=== PATIENT | female | born 1955 | race Caucasian/White ===

== ENCOUNTER → 2017-07-02 | Emergency (ER) | payer OTHER ==
[~2017-07-02] VITALS: Ht 152.4 cm; Wt 61.2 kg
== END | disposition home or self-care (01) ==
LOC: ER 14:00
DX: M25.551 Pain in right hip (principal)

== ENCOUNTER 2018-11-09 10:53 | Emergency (ER) | payer OTHER ==
[~2018-11-09] VITALS: Ht 160 cm; Wt 62.6 kg
== END 2018-11-09 14:17 | disposition home or self-care (01) ==
LOC: ER 10:53
DX: M54.31 Sciatica, right side (principal)

== ENCOUNTER 2021-12-31 08:07 | Outpatient (CLI) | payer OTHER | END 2021-12-31 08:09 | disposition home or self-care (01) | LOC: NUCLEAR 08:07 | PROVIDERS: ATTEND Family Medicine | DX: M81.0 Age-related osteoporosis without current pathological fracture (principal) ==

== ENCOUNTER 2021-12-31 08:39 | Outpatient (CLI) | payer OTHER | END 2021-12-31 08:43 | disposition home or self-care (01) | LOC: LAB 08:39 | PROVIDERS: ATTEND Family Medicine | DX: R42 Dizziness and giddiness (principal); E03.9 Hypothyroidism, unspecified; N39.0 Urinary tract infection, site not specified; E78.2 Mixed hyperlipidemia; E11.9 Type 2 diabetes mellitus without complications ==

== ENCOUNTER 2021-12-31 11:03 | Outpatient (CLI) | payer OTHER | END 2021-12-31 11:12 | disposition home or self-care (01) | LOC: MAMO-SONO 11:03 | PROVIDERS: ATTEND Family Medicine | DX: Z12.31 Encounter for screening mammogram for malignant neoplasm of breast (principal) ==

== ENCOUNTER 2024-09-21 08:02 | Outpatient (CLI) | payer OTHER ==
[2024-09-21 08:55] LABS: HEMATOCRIT 42.4 % (36.0-45.00); HEMOGLOBIN 14.2 g/dL (12.0-15.00); MEAN CORPUSCULAR HEMOGLOBIN 30.2 pg (27.00-32.0); MEAN CORPUSCULAR HGB CONC 33.5 g/dl (32.0-36.0); PLATELET COUNT 236 K/uL (150-450); RED BLOOD COUNT 4.71 M/uL (4.00-6.00); RED CELL DISTRIBUTION WIDTH 13.9 % (11.5-14.5)
[2024-09-21 08:57] LABS: URINE APPEARANCE Cloudy; URINE BILIRRUBIN Negative (NEGATIVE); URINE BLOOD Negative; URINE COLOR Yellow; URINE GLUCOSE Negative (NEGATIVE); URINE KETONE Negative (NEGATIVE); URINE LEUKOCYTE Small; URINE NITRATE Negative; URINE PROTEIN Negative (NEGATIVE)
[2024-09-21 09:01] LABS: URINE BACTERIA 3053.7 uL (0.0-1933); URINE EPITHELIAL CELLS 98.4 uL (0.0-38.8); URINE RBC 9.7 uL (0.0-20.8); URINE WBC 57.9 uL (0.0-23.2)
[2024-09-21 09:29] LABS: URINE CAST 0.14 uL (0.0-1.40)
[2024-09-21 10:10] LABS: ob NEGATIVE (NEGATIVE)
[2024-09-21 10:14] LABS: ALBUMIN 3.6 gm/dL (3.4-5.0); BILIRUBIN TOTAL 0.48 mg/dL (0.3-1.2); CALCIUM 9.5 mg/dL (8.5-10.1); CHOL HDL RATIO 3.9 (0-5.0); CREATININE SERUM 0.71 mg/dL (0.55-1.02); GFR 81.86; GLOBULINA 3.8 G/DL (2.4-3.5); POTASSIUM 4.63 mEq/L (3.5-5.1); TOTAL PROTEIN 7.4 gm/dL (6.4-8.2); TSH 2.22 uIU/mL (0.358-3.74)
== END 2024-09-21 13:12 | disposition home or self-care (01) ==
LOC: LAB 08:02
PROVIDERS: ATTEND Internal Medicine
DX: N18.2 Chronic kidney disease, stage 2 (mild) (principal); E78.00 Pure hypercholesterolemia, unspecified; E78.2 Mixed hyperlipidemia; R30.0 Dysuria; R19.5 Other fecal abnormalities; Z12.11 Encounter for screening for malignant neoplasm of colon; E11.9 Type 2 diabetes mellitus without complications; E03.8 Other specified hypothyroidism; D64.89 Other specified anemias

== ENCOUNTER 2024-09-21 08:40 | Outpatient (CLI) | payer OTHER | END 2024-09-21 08:43 | disposition home or self-care (01) | LOC: RAD 08:40 | PROVIDERS: ATTEND Internal Medicine | DX: M25.551 Pain in right hip (principal); F17.200 Nicotine dependence, unspecified, uncomplicated ==